=== PATIENT | female | born 1965 | race Caucasian/White ===

== ENCOUNTER 2016-06-04 09:15 | Emergency (ER) | payer MEDICARE, BC ==
[2016-06-04] MEDS ORDERED: ASPIRIN 81 MG CHEWABLE CTB ONE (09:19)
[2016-06-04] MEDS ORDERED: NITROGLYCERIN 0.4 MG TAB SL PRN (09:28)
[2016-06-04] MEDS ORDERED: MORPHINE SULFATE 10 MG/ML SOL IV PRN (09:28)
[2016-06-04] MEDS ORDERED: ASPIRIN 81 MG CHEWABLE CTB PO STA (09:28)
[2016-06-04] MEDS: SODIUM CHLORIDE 0.9% FLUSH 10 ML SOL IV PRN ×2 (09:40→10:23)
[2016-06-04 09:41] LABS: BASOPHILS % (AUTO) 1 % (0-3); EOSINOPHILS % (AUTO) 2 % (0-9); HEMATOCRIT 28 % (35-47); MEAN CORPUSCULAR HGB CONC 32.4 gm/dl (32.0-36.0); MONOCYTES % (AUTO) 4.5 % (0-12); NEUTROPHILS % (AUTO) 91.8 % (37-80)
[2016-06-04] MEDS ORDERED: NITROGLYCERIN 0.4 MG TAB SL ONE (09:41)
[2016-06-04] MEDS ORDERED: SOLUMEDROL 125 MG/2 ML 125 MG/2 ML PDS IV ONE (09:46)
[2016-06-04] MEDS ORDERED: MORPHINE SULFATE 10 MG/ML SOL ONE ×2 (09:51→10:18)
[2016-06-04 10:04] LABS: CALCIUM 8.7 mg/dl (8.5-10.1); GLOM FILT RATE 25 mL/min (>60); POTASSIUM 5.8 mMol/L (3.5-5.1); SODIUM 131 mMol/L (136-145)
[2016-06-04] MEDS ORDERED: DEXTROSE 50% 1 VIAL SOL IV ONE ×2 (10:12→10:30)
[2016-06-04] MEDS ORDERED: ALBUTEROL NEB SOL 2.5MG/3ML 1 VIAL SOL NEB ONE (10:12)
[2016-06-04] MEDS ORDERED: [UNRECOGNIZED DRUG - OTHER] IJ SCH (10:15)
[2016-06-04] MEDS ORDERED: INSULIN HUMAN REGULAR U IJ SCH (10:15)
[2016-06-04] MEDS ORDERED: SODIUM CHLORIDE 0.9% IV ONE (10:15)
[2016-06-04] MEDS ORDERED: SODIUM BICARBONATE IV ONE (10:15)
[2016-06-04] MEDS ORDERED: SOLUMEDROL 125 MG/2 ML 125 MG/2 ML PDS ONE (10:17)
[2016-06-04] MEDS ORDERED: ALBUTEROL NEB SOL 2.5MG/3ML 1 VIAL SOL ONE (10:26)
[2016-06-04] MEDS ORDERED: INSULIN HUMAN REGULAR 100 U/ML SOL ONE (10:51)
[2016-06-04 13:55] VITALS: BP 139/81; PULSE 71; RESP 20; TEMP 97.9; O2SAT 89
== END 2016-06-04 13:43 | disposition home or self-care (01) | DRG 684 ==
LOC: ED 09:15
DX: N17.9 Acute kidney failure, unspecified (principal); E87.5 Hyperkalemia; E11.9 Type 2 diabetes mellitus without complications; W19.XXXA Unspecified fall, initial encounter
CPT/HCPCS: 36415; 71010; 80048; 82550; 82962; 84132; 84484; 85025; 85610; 85730; 93005; 96365; 96374; 96375; 99284; 99285; J1815; J2270; J2930; J7603

== ENCOUNTER 2016-09-04 19:48 | Emergency (ER) | payer MEDICARE, BC ==
[2016-09-04] MEDS ORDERED: NOREPINEPHRINE BITARTRATE 4 MG/4 ML SOL IV ONE (19:55)
[2016-09-04] MEDS ORDERED: ATROPINE 0.1 MG/ML SOL ONE (19:57)
[2016-09-04] MEDS ORDERED: LACTATED RINGERS 1,000 ML IV ONE ×3 (19:58→20:50)
[2016-09-04] MEDS: EPINEPHRINE HCL 0.1 MG/ML SOL IV PRN ×4 (20:00→20:31)
[2016-09-04] MEDS: SODIUM CHLORIDE 0.9% FLUSH 10 ML SOL IV PRN ×4 (20:00→20:31)
[2016-09-04] MEDS ORDERED: NOREPINEPHRINE 4 MG/4 ML 4 MG in DEXTROSE 500 ML 500 ML IV SCH (22:00)
[2016-09-04 22:23] VITALS: RESP 10
[2016-09-04] MEDS ORDERED: EPINEPHRINE 1:10,000 PREFILL 0.1 MG/ML SOL ONE (22:31)
[2016-09-04 22:50] VITALS: BP 90/39; PULSE 138; O2SAT 92
== END 2016-09-04 20:57 | disposition short-term general hospital (02) | DRG 296 ==
LOC: ED 19:48
DX: I46.9 Cardiac arrest, cause unspecified (principal); R40.2312 Coma scale, best motor response, none, at arrival to emergency department; R40.2112 Coma scale, eyes open, never, at arrival to emergency department; R40.2212 Coma scale, best verbal response, none, at arrival to emergency department; W19.XXXA Unspecified fall, initial encounter
CPT/HCPCS: 93005; 96365; 96374; 99291; J0461